=== PATIENT | female | born 1955 | race Caucasian/White ===

== ENCOUNTER 2023-08-25 09:23 | Emergency (ER) | payer MEDICARE, SELFPAY ==
--- NOTE | 2023-08-25 09:27 | ED.URI ---
HPI - URI/Sore Throat General Chief Complaint: Upper Respiratory Infection Stated Complaint: Cough/Chest Pain/Ear Pain/Sore Throat Time Seen by Provider: 08/25/23 09:39 Source: patient and RN notes reviewed Mode of arrival: ambulatory Limitations: no limitations History of Present Illness HPI Narrative: 67-year-old female with history of lupus presents with concern for one-week history of persistent cough, stomach discomfort with coughing, sore throat, ears clogged. She reports she has been taking [id number] medications without relief. She denies fever. She reports coughing has caused her to have a nose bleed and not be able to sleep at night. She reports she has shortness of breath at baseline, shortness MD elicited complaint: cough Related Data Home Medications Medication Instructions Recorded Confirmed gabapentin 600 mg tablet 600 mg PO BID 10/20/19 08/25/23 lactobacillus combination no.8 PO 10/20/19 05/17/23 [Adult Probiotic] levothyroxine 50 mcg tablet 50 mcg PO DAILY 10/20/19 08/25/23 calcium polycarbophil [Fiber PO 06/24/20 05/17/23 (calcium polycarbophil)] cholecalciferol (vitamin D3) PO 06/24/20 05/17/23 folic acid PO 06/24/20 05/17/23 pantoprazole 20 mg tablet,delayed 20 mg PO QAM 11/15/20 08/25/23 release colestipol 1 gram tablet 1 g PO DAILY 06/03/21 08/25/23 nebivolol 10 mg tablet 10 mg PO DAILY 05/11/22 08/25/23 ezetimibe 10 mg tablet 10 mg PO DAILY 08/25/23 08/25/23 rosuvastatin 40 mg tablet 40 mg PO WEEKLY 08/25/23 08/25/23 Allergies Allergy/AdvReac Type Severity Reaction Status Date / Time hydroxychloroquine Allergy Unknown eye damage Verified 05/17/23 10:51 [From Plaquenil] methotrexate Allergy Unknown Unknown Verified 05/17/23 10:51 Review of Systems Review of Systems: CONSTITUTIONAL: Denies malaise, chills, sweats, or fever. EYES: Denies visual changes, redness, or discharge. ENT: Reports nosebleed, otalgia and sore throat. CARDIOVASCULAR: Denies chest pain, palpitations, or edema. RESPIRATORY: Reports persistent cough, dyspnea. GASTROINTESTINAL: Denies abdominal pain, nausea, vomiting, diarrhea SKIN: Denies rash or itching. MUSCULOSKELETAL: Denies myalgia. Reports abdominal discomfort with coughing NEUROLOGIC: Denies headache. All systems reviewed & are unremarkable except as noted in HPI and below PMFSH Past Medical History Medical History Arthritis Chronic ITP (idiopathic thrombocytopenic purpura) Degenerative joint disease (DJD) of lumbar spine Lupus Pacemaker Surgical History Surgical History No pertinent past surgical history Family History Family History Mother Hypertension Diabetes mellitus Father COPD (chronic obstructive pulmonary disease) Hypertension Diabetes mellitus Social History Social History Smoking status: Never smoker Alcohol intake: never Alcohol use details: Beer Substance use: never Substance use type: does not use Lack of Transportation: No Lack of Food: Never True Current Housing: I Have Housing Concerned About Future Housing: No Difficulty Paying Gas/Electric Bills: No Difficulty Paying for Meds: No Currently Unemployed: No Education: Decline to Answer Difficulty w/ Childcare or Family Care: No Living arrangements: with family Occupation/Education: retired Comments At time of signature, agree with nursing past medical, surgical, social and family history. There is no relevant family history pertinent to the presenting complaint Exam Narrative: GENERAL: Nontoxic-appearing, well-nourished, and in no acute distress. HEAD: Normocephalic EYES: PERRLA, conjunctivae clear ENT: Nares clear, no epistaxis. Mucous membranes moist. TM pearly ayers with dull light reflex bilaterally; no traga
[2023-08-25 09:29] VITALS: BP 149/70; PULSE 88; RESP 20; TEMP 38; O2SAT 97
== END 2023-08-25 09:52 | disposition home or self-care (01) ==
PROVIDERS: Emergency Provider Nurse Practitioner
DX: J06.9 Acute upper respiratory infection, unspecified (principal); M19.90 Unspecified osteoarthritis, unspecified site; D69.3 Immune thrombocytopenic purpura; M47.816 Spondylosis without myelopathy or radiculopathy, lumbar region; Z95.0 Presence of cardiac pacemaker; M32.9 Systemic lupus erythematosus, unspecified; E03.9 Hypothyroidism, unspecified; I10 Essential (primary) hypertension
CPT/HCPCS: 99213; G0463